=== PATIENT | male | born 2005 | race Caucasian/White ===

== ENCOUNTER 2023-02-23 17:53 | Emergency (ER) | payer OTHER, BC ==
[~2023-02-23] VITALS: Ht 167.6 cm; Wt 61.2 kg
[2023-02-23 18:20] LABS: HEMATOCRIT 44.2 % (35.0-50.0); HEMOGLOBIN 14.7 g/dL (12.0-18.0); MCHC 33.2 g/dl (30-36); MCV 84.5 fl (81-99); PLATELET COUNT 340 K/uL (140-440); RBC 5.24 M/ul (4.3-5.7); RDW 13.2 (10.5-15.0)
[2023-02-23 18:32] LABS: BANDS, MANUAL DIFF 1; BASOPHILS, MANUAL DIFF 2; LYMPHOCYTES, MANUAL DIFF 12; MONOCYTES, MANUAL DIFF 3; NEUTROPHILS, MANUAL DIFF 80
[2023-02-23 18:34] LABS: ALBUMIN 4.7 g/dL (3.4-5.0); ALBUMIN/GLOBULIN RATIO 1.38 (1.1-2.4); ALCOHOL, MEDICAL <3 ng/dL (<3); ALKALINE PHOSPHATASE 104 U/L (46-116); ALT (SGPT) 43 U/L (14-59); ANION GAP 14.6 (7-21); AST (SGOT) 50 U/L (15-37); BILIRUBIN, TOTAL 0.6 ng/dL (0.2-1.0); BUN/CREATININE RATIO 8.33 (6.0-28.6); CALCIUM 9.3 mg/dL (8.5-10.1); CARBON DIOXIDE 26 mmol/L (21-32); CHLORIDE 100 mmol/L (98-107); CREATINE KINASE 314 U/L (39-308); GLOMERULAR FILTRATION RATE,EST 89 mL/min (>60); POTASSIUM 3.6 mmol/L (3.5-5.1); PROTEIN, TOTAL 8.1 g/dL (6.4-8.2); UREA NITROGEN 10 mg/dL (7-18)
[2023-02-23 18:41] LABS: AMPHETAMINES, UR NEGATIVE (NEGATIVE); BARBITURATES, UR NEGATIVE (NEGATIVE); BENZODIAZEPINES, UR NEGATIVE (NEGATIVE); BUPRENORPHINE,UR NEGATIVE (NEGATIVE); COCAINE, UR NEGATIVE (NEGATIVE); MARIJUANA (THC), UR NEGATIVE (NEGATIVE); MDMA, UR NEGATIVE (NEGATIVE); METHADONE, UR NEGATIVE (NEGATIVE); METHAMPHETAMINE, UR NEGATIVE (NEGATIVE); OPIATES, UR NEGATIVE (NEGATIVE); OXYCODONE, UR NEGATIVE (NEGATIVE); PHENCYCLIDINE, UR NEGATIVE (NEGATIVE); TRICYCLIC ANTIDEPRESSANT, UR NEGATIVE (NEGATIVE)
[2023-02-23 18:48] LABS: BILIRUBIN, URINE NEGATIVE (negative); BLOOD/HGB, URINE LARGE (Negative); KETONE, URINE SMALL (Negative); LEUK ESTERASE, URINE MODERATE (negative); NITRITE, URINE POSITIVE (negative)
[2023-02-23 18:50] LABS: RED BLOOD CELLS, URINE >50 /hpf (0-5)
[2023-02-23 18:51] LABS: BACTERIA, URINE NONE SEEN /hpf (negative); CASTS, URINE NONE SEEN \\lpf; COLLECTION TYPE, URINE CLEAN CATCH; CRYSTALS, URINE NONE SEEN (0-1+); EPITHELIAL CELLS, URINE NONE SEEN /lpf (0-1+); REFLEX CULTURE, URINE No (No)
[2023-02-23 18:54] LABS: ABO A; ANTIBODY SCREEN NEGATIVE; RH NEGATIVE
[2023-02-23 19:23] LABS: INFLUENZA B NAA NEGATIVE (NEGATIVE); RESPIRATORY SYNCYTIAL VIR NAA NEGATIVE (NEGATIVE)
[2023-02-23 20:47] VITALS: BP 122/67
== END 2023-02-23 20:50 | disposition short-term general hospital (02) ==
LOC: ED 17:53
PROVIDERS: Family Medicine
DX: S37.061A Major laceration of right kidney, initial encounter (principal); W55.22XA Struck by cow, initial encounter; Z20.822 Contact with and (suspected) exposure to COVID-19; Z23 Encounter for immunization
CPT/HCPCS: 36415; 71260; 74177; 80053; 81001; 82553; 83605; 83690; 85025; 86850; 86900; 86901; 87502; 90471; 90715; 99284-25; C9803; G0480; J2270; J2405; J3010; J7121; Q9967; U0002